=== PATIENT | female | born 1985 | race Caucasian/White ===

== ENCOUNTER 2016-11-03 09:50 | Emergency (ER) | payer MEDICAID ==
--- NOTE | 2016-11-03 10:58 | EDM.PDOC ---
ED HPI GENERAL MEDICAL PROBLEM - General Stated Complaint: UNCONTROLLABLE BLEEDING Time Seen by Provider: 11/03/16 10:45 Source of Information: Reports: Patient History Limitations: Reports: No Limitations - History of Present Illness INITIAL COMMENTS - FREE TEXT/NARRATIVE: patient presents with 3 week history of intermittent vaginal bleeding. She is 3 months post delivery. In the last 2 days the bleeding has increased, she is going through 6 thick maxi pads in 2 hours. she recently seen her INSIDE SALES AGENT and started on control Thursday and since the start of that she has had the increased vaginal bleeding. denies abdominal pain, weakness, dizziness, or shortness of breath. Onset: Gradual Improves with: Reports: None Associated Symptoms: Reports: No Other Symptoms - Related Data Allergies Allergy/AdvReac Type Severity Reaction Status Date / Time No Known Drug Allergies Allergy Other Verified 12/05/15 10:51 Home Meds: Home Meds Hydrocodone/Acetaminophen [[place] 5-325] 1 tab PO TID 12/28/14 [History] Ibuprofen 800 mg PO TID 12/28/14 [History] Fluocinonide [Fluocinonide] 1 dose TOP BID 08/22/15 [History] Non-Formulary Medication [NF Drug] 1 applic TOP TID PRN 10/24/15 [History] Social & Family History - Tobacco Use Smoking Status *Q: Current Every Day Smoker Years of Tobacco use: 10 - Alcohol Use Days Per Week of Alcohol Use: 0 - Recreational Drug Use Recreational Drug Use: No ED ROS GENERAL - Review of Systems Review Of Systems: ROS reveals no pertinent complaints other than HPI. ED EXAM, RENAL/ - Physical Exam Exam: See Below General Appearance: Alert, WD/WN, No Apparent Distress Respiratory/Chest: No Respiratory Distress, Lungs Clear, Normal Breath Sounds Cardiovascular: Regular Rate, Rhythm, No Murmur GI/Abdominal: Normal Bowel Sounds, Soft, Non-Tender Course - Orders/Labs/Meds Labs: Laboratory Tests 11/03/16 Range/Units 10:55 WBC 9.2 (4.0-10.0) x10^3/uL RBC 3.80 L (4.00-5.50) x10^6/uL Hgb 11.1 L (12.0-16.0) g/dL Hct 35.1 (33.0-47.0) % MCV 92.4 (78.0-93.0) fL MCH 29.2 (26.0-32.0) pg MCHC 31.6 L (32.0-36.0) g/dL RDW Coeff of Ashley 14.5 (10.0-15.0) % Plt Count 218 (130-400) x10^3/uL Neut % (Auto) 78.3 (50.0-80.0) % Lymph % (Auto) 13.7 L (25.0-50.0) % Clinch % (Auto) 5.7 (2.0-11.0) % Eos % (Auto) 2.1 (0.0-4.0) % Baso % (Auto) 0.2 (0.2-1.2) % Departure - Departure Time of Disposition: 11:30 Disposition: Home, Self-Care 01 Condition: Good Clinical Impression: Vaginal bleeding, abnormal - Discharge Information - Problem List & Annotations (1) Vaginal bleeding, abnormal SNOMED Code(s): 557146907 Code(s): N93.9 - ABNORMAL UTERINE AND VAGINAL BLEEDING, UNSPECIFIED Status : Acute Priority: Low - Assessment/Plan Plan: patient has appt to see her INSIDE SALES AGENT today.
[2016-11-03 14:16] VITALS: BP 128/87
== END 2016-11-03 11:36 | disposition home or self-care (01) ==
LOC: VM.ED 09:50
DX: N93.9 Abnormal uterine and vaginal bleeding, unspecified (principal); F17.210 Nicotine dependence, cigarettes, uncomplicated
CPT/HCPCS: 36415; 85025; 99284

== ENCOUNTER 2017-05-20 18:30 | Emergency (ER) | payer MEDICAID ==
[2017-05-20 18:50] VITALS: BP 132/56
--- NOTE | 2017-05-20 19:04 | EDM.PDOC ---
ED HPI GENERAL MEDICAL PROBLEM - General Chief Complaint: Genitourinary Problem Stated Complaint: cedillo drainage bag is leaking Time Seen by Provider: 05/20/17 18:39 Source of Information: Reports: Patient History Limitations: Reports: No Limitations - History of Present Illness INITIAL COMMENTS - FREE TEXT/NARRATIVE: Patient with history of recently diagnosed cervical cancer. She did have hysterectomy in [place] and a catheter was placed due to incontinence after surgery. She is requesting that the catheter be removed this evening. She has no other complaints and does not wish to be seen for anything else at this time. She did state she called her medical providers in [place] who stated she could come in to have the catheter removed. - Related Data Allergies Allergy/AdvReac Type Severity Reaction Status Date / Time No Known Drug Allergies Allergy Other Verified 05/20/17 18:51 Home Meds: Home Meds Hydrocodone/Acetaminophen [[place] 5-325] 1 tab PO TID 12/28/14 [History] Fluocinonide 1 dose TOP BID 08/22/15 [History] Non-Formulary Medication [NF Drug] 1 applic TOP TID PRN 10/24/15 [History] Enoxaparin [Lovenox] 120 mg SUBCUT Q12H #20 syringe 02/05/17 [Rx] Warfarin Sodium 5 mg PO DAILY #10 tablet 02/05/17 [Rx] Past Medical History - Past Health History Medical/Surgical History: Denies Medical/Surgical History HEENT History: Reports: None Cardiovascular History: Reports: None Respiratory History: Reports: None Gastrointestinal History: Reports: None Genitourinary History: Reports: None Musculoskeletal History: Reports: Back Pain, Chronic - Infectious Disease History Infectious Disease History: Reports: Chicken Pox - Past Surgical History Female Surgical History: Reports: Section Other Female Surgeries/Procedures: C section X4 Social & Family History - Family History Family Medical History: Noncontributory - Tobacco Use Smoking Status *Q: Unknown Ever Smoked Years of Tobacco use: 10 Packs/Tins Daily: 1 Used Tobacco, but Quit: No - Caffeine Use Caffeine Use: Reports: Soda - Alcohol Use Days Per Week of Alcohol Use: 0 - Recreational Drug Use Recreational Drug Use: No ED ROS GENERAL - Review of Systems Review Of Systems: ROS reveals no pertinent complaints other than HPI. : Reports: Other (catheter bag is leaking) ED EXAM, RENAL/ - Physical Exam Exam: Not Obtained Course - Vital Signs Last Recorded V/S: Last Vital Signs Temp 36.8 C 05/20/17 18:35 Pulse 94 05/20/17 18:35 Resp 16 05/20/17 18:35 BP 132/56 L 05/20/17 18:35 Pulse Ox 97 05/20/17 18:35 - Re-Assessments/Exams Free Text/Narrative Re-Assessment/Exam: 05/20/17 21:17 Catheter was removed by nursing. Patient instructed to return if she developed inability to urinate or if she began to be incontinent again. She has follow up appointment in [place] tomorrow. Departure - Departure Time of Disposition: 19:05 Disposition: Home, Self-Care 01 Condition: Good Clinical Impression: Encounter for Cedillo catheter removal Cervical cancer Qualifiers: Malignant neoplasm of cervix location: unspecified location Qualified Code(s): C53.9 - Malignant neoplasm of cervix uteri, unspecified - Discharge Information Instructions: Acute Urinary Retention, Female, [id number] Referrals: Rachel De La Rosa, [Primary Care Provider] - Forms: ED Department Discharge Additional Instructions: Please return to the ED if you have any problems with urinary retention or if you are leaking and would like the catheter put back in. We will reinsert your catheter if needed tonight before your appointment tomorrow. Please call with any questions or concerns. - Problem List & Annotations (1) Cervical cancer Status: Acute Qualifiers: Malignant neoplasm of cervix location: unspecified location Qualified Code( s): C53.9 - Malignant neoplasm of cervix uteri, unspecified (2) Encounter for Cedillo catheter removal SNOMED Code(s): 289915271 Code(s): Z46.6 - ENCOUNTER FOR FITTING AND ADJUSTMENT OF URINARY DEVICE Status: Acute Priority: Low - Problem List Review Problem List Initiated/Reviewed/Updated: Yes - Assessment/Plan Assessment:: removal of catheter Plan: Please return to the ED if you have any problems with urinary retention or if you are leaking and would like the catheter put back in. We will reinsert your catheter if needed tonight before your appointment tomorrow. Please call with any questions or concerns.
== END 2017-05-20 19:08 | disposition home or self-care (01) ==
LOC: VM.ED 18:30
DX: Z46.6 Encounter for fitting and adjustment of urinary device (principal); C53.9 Malignant neoplasm of cervix uteri, unspecified; Z79.01 Long term (current) use of anticoagulants; Z90.710 Acquired absence of both cervix and uterus
CPT/HCPCS: 99283

== ENCOUNTER 2021-01-24 03:31 | Emergency (ER) | payer MEDICAID ==
[2021-01-24 03:41] VITALS: BP 152/85; PULSE 84
[2021-01-24] MEDS ORDERED: Bupivacaine 0.5% 30 ML SDV INJECT PRN (03:41)
--- NOTE | 2021-01-24 03:55 | EDM.PDOC ---
ED HPI GENERAL MEDICAL PROBLEM - General Chief Complaint: ENT Problem Stated Complaint: Toothache Time Seen by Provider: 01/24/21 03:40 Source of Information: Reports: Patient History Limitations: Reports: No Limitations - History of Present Illness INITIAL COMMENTS - FREE TEXT/NARRATIVE: Patient presents the ER with ongoing toothache that she has had for a while now for at least a couple of weeks she is waiting to have a tooth pulled by her dentist like she did on the right side about 3 months ago. Today the dental pain started about 1 PM she took some Tylenol hydrocodone try to wash her mouth out with warm salt water gargles and applied vanilla extract but could not get rid of the dental pain got worse about 1 AM she predicted it here to the emergency room further evaluation. She has no other complaints at this time states she has been fine till early this morning. 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: Reports: Acetaminophen, NSAIDS Left Lower Face/Facial Pain Score (Numeric/FACES): 9 - Related Data Allergies Allergy/AdvReac Type Severity Reaction Status Date / Time No Known Drug Allergies Allergy Other Verified 01/24/21 03:36 Home Meds: Home Meds Hydrocodone/Acetaminophen [[place] 5-325] 1 tab PO TID 12/28/14 [History] Non-Formulary Medication [NF Drug] 1 applic TOP TID PRN 10/24/15 [History] tiZANidine [Zanaflex] 4 mg PO TID PRN 30 Days #90 tablet 08/12/17 [Rx] Acetaminophen [Tylenol Extra Strength] 1,000 mg PO Q8H PRN 09/06/20 [History] Past Medical History - Past Health History Medical/Surgical History: Denies Medical/Surgical History HEENT History: Reports: None Cardiovascular History: Reports: None, Blood Clots/VTE/DVT Respiratory History: Reports: PE Gastrointestinal History: Reports: None Genitourinary History: Reports: None Musculoskeletal History: Reports: Back Pain, Chronic Endocrine/Metabolic History: Reports: None Immunologic History: Reports: None Oncologic (Cancer) History: Reports: Cervix, Uterine - Infectious Disease History Infectious Disease History: Reports: Chicken Pox - Past Surgical History Female Surgical History: Reports: Section, Hysterectomy, LEEP Other Female Surgeries/Procedures: C section X4 Musculoskeletal Surgical History: Reports: None Social & Family History - Family History Family Medical History: No Pertinent Family History - Caffeine Use Caffeine Use: Reports: Soda - Living Situation & Occupation Living situation: Reports: (seperated), with Family (4 children, 2 boys, 2 girls.) 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 Denies: Ear Discharge, Ear Pain, Eye Discharge, Eye Pain, Nose Pain, Rhinitis, Sinus Problem, Throat Pain, Throat Swelling, Vertigo, Vision Change Respiratory: Reports: No Symptoms Cardiovascular: Reports: No Symptoms Endocrine: Reports: No Symptoms GI/Abdominal: Reports: No Symptoms : Reports: No Symptoms Musculoskeletal: Reports: No Symptoms Skin: Reports: No Symptoms Neurological: Reports: No Symptoms. Denies: Dizziness, Headache, Trouble Speaking Psychiatric: Reports: No Symptoms Hematologic/Lymphatic: Reports: No Symptoms Immunologic: Reports: No Symptoms ED EXAM, ENT - Physical Exam Exam: See Below Exam Limited By: No Limitations General Appearance: Alert, WD/WN, No Apparent Distress Eye Exam: Bilateral Eye: EOMI, Normal Inspection, PERRL Ears: Normal External Exam, Normal Canal, Hearing Grossly Normal, Normal TMs Nose: Normal Inspection, Normal Mucousa, No Blood Mouth/Throat: Normal Inspection, Normal Gums, Normal Lips, Normal Oropharynx, Normal Teeth, Dental Pain, Dental Tenderness, Other (Patient has noted very poor dentention noted fracture and tenderness to palpation over the tooth at 19 there is no signs or symptoms of any secondary abscesses no erythema calor uvula is in line) Head: Atraumatic, Normocephalic Neck: Normal Inspection, Supple, Non-Tender, Full Range of Motion Respiratory/Chest: No Respiratory Distress, Lungs Clear, Normal Breath Sounds, No Accessory Muscle Use, Chest Non-Tender Cardiovascular: Normal Peripheral Pulses, Regular Rate, Rhythm, No Edema Extremities: Normal Inspection, Normal Range of Motion Neurological: Alert, CN II-XII Intact, Normal Cognition, Normal Gait, No Motor/Sensory Deficits Psychiatric: Normal Affect, Normal Mood Skin: Warm, Dry, Intact, Normal Color, No Rash Lymphatic: No Adenopathy Course - Vital Signs Text/Narrative:: Patient was injected with 1 and half cc of Marcaine 0.5% with a inferior alveolar block patient recheck stated pain level was 5 and decreasing patient was instructed to follow-up with dentist in the morning go home and take hydrocodone, ibuprofen as directed gargle with warm salt water she may apply Listerine to the area as much as tolerated and as needed Last Recorded V/S: Last Vital Signs Temp 36.8 C 01/24/21 03:36 Pulse 84 01/24/21 03:36 Resp 16 01/24/21 03:36 BP 152/85 H 01/24/21 03:36 Pulse Ox 99 01/24/21 03:36 - Orders/Labs/Meds Orders: Active Orders 24 hr Category Date Time Status Bupivacaine 0.5% [Marcaine 0.5%] Med 01/24/21 03:41 Active 30 ml INJECT ASDIRECTED PRN Medication Orders Bupivacaine HCl (Bupivacaine 0.5% 30 Ml Sdv) 30 ml INJECT ASDIRECTED PRN PRN Reason: Other Meds: Medications Generic Name Dose Route Start Last Admin Trade Name Freq PRN Reason Stop Dose Admin Bupivacaine HCl 30 ml 01/24/21 03:41 Bupivacaine 0.5% 30 Ml Sdv INJECT ASDIRECTED PRN Other Departure - Departure Time of Disposition: 03:55 Disposition: Home, Self-Care 01 Condition: Good Clinical Impression: Pain, dental - Discharge Information *PRESCRIPTION DRUG MONITORING PROGRAM REVIEWED*: No *COPY OF PRESCRIPTION DRUG MONITORING REPORT IN PATIENT NANCY: No Sepsis Event Note (ED) - Evaluation Sepsis Screening Result: No Definite Risk - Focused Exam Vital Signs: Vital Signs Temp Pulse Resp BP Pulse Ox 01/24/21 03:36 36.8 C 84 16 152/85 H 99 - Problem List & Annotations (1) Pain, dental SNOMED Code(s): 97666750 Code(s): K08.89 - OTHER SPECIFIED DISORDERS OF TEETH AND SUPPORTING STRUCTURES Status: Acute - My Orders Last 24 Hours: My Active Orders 01/24/21 03:41 Bupivacaine 0.5% [Marcaine 0.5%] 30 ml INJECT ASDIRECTED PRN - Assessment/Plan Last 24 Hours: My Active Orders 01/24/21 03:41 Bupivacaine 0.5% [Marcaine 0.5%] 30 ml INJECT ASDIRECTED PRN
== END 2021-01-24 04:05 | disposition home or self-care (01) ==
LOC: VM.ED 03:31
DX: K08.89 Other specified disorders of teeth and supporting structures (principal)
CPT/HCPCS: 64400; 99282; J3490